=== PATIENT | female | born 2000 | race Two or more races ===

== ENCOUNTER 2022-07-01 02:25 | Emergency (ER) | payer SELFPAY ==
[~2022-07-01] VITALS: Ht 160 cm; Wt 59.0 kg
[2022-07-01 04:35] VITALS: BP 120/64
== END 2022-07-01 04:53 | disposition home or self-care (01) ==
LOC: EDBD 02:25 → EDUNIT# 02:25 → ER 02:25
DX: F10.129 Alcohol abuse with intoxication, unspecified (principal)